=== PATIENT | female | born 1995 | race Caucasian/White ===

== ENCOUNTER 2017-07-23 14:14 | Emergency (ER) | payer MEDICAID, OTHER ==
[~2017-07-23] VITALS: Ht 162.6 cm; Wt 52.3 kg
[~2017-07-23 14:14] MED LIST: NOCURR
[2017-07-23] MEDS ORDERED: ACETAMINOPHEN 500 MG TABLET PO ONE (14:30)
[2017-07-23] MEDS ORDERED: AMOX TR/POT CLAV 875 MG/125 MG TABLET PO ONE (16:00)
[2017-07-23] MEDS ORDERED: CIPROFLOXACIN HCL 0.2%/HYDROCORT 1% 10 ML OTIC SUSPENSION AD ONE (16:00)
[2017-07-23] MEDS ORDERED: ONDANSETRON HCL 4 MG TABLET PO ONE (16:00)
[2017-07-23] MEDS ORDERED: NEOMYCIN/POLYMYXIN B/HYDROCORT 10 ML OTIC SUSPENSION AD ONE (16:00)
[2017-07-23 16:01] LABS: INFLUENZA TYPE A NEGATIVE FOR TYPE A (NEGATIVE); INFLUENZA TYPE B NEGATIVE FOR TYPE B (NEGATIVE)
[2017-07-23 17:06] VITALS: BP 109/68
== END 2017-07-23 17:07 | disposition home or self-care (01) ==
LOC: EMS 14:15
DX: H72.91 Unspecified perforation of tympanic membrane, right ear (principal); H60.91 Unspecified otitis externa, right ear; J06.9 Acute upper respiratory infection, unspecified; R11.2 Nausea with vomiting, unspecified
CPT/HCPCS: 87804; 99284; Q0162

== ENCOUNTER 2018-06-30 07:48 | Emergency (ER) | payer OTHER ==
[~2018-06-30] VITALS: Ht 165.1 cm; Wt 62.7 kg
[2018-06-30] MEDS ORDERED: HYDROCODONE/ACETAMINOPHEN 5-325 MG TABLET PO ONE (09:00)
[2018-06-30] MEDS ORDERED: KETOROLAC TROMETHAMINE 30 MG/ML VIAL IM ONE (09:00)
[2018-06-30 10:01] VITALS: BP 114/63
== END 2018-06-30 10:54 | disposition home or self-care (01) ==
LOC: EMS 07:49
DX: S13.4XXA Sprain of ligaments of cervical spine, initial encounter (principal); X50.9XXA Other and unspecified overexertion or strenuous movements or postures, initial encounter; Y93.89 Activity, other specified; Y92.89 Other specified places as the place of occurrence of the external cause; Y99.8 Other external cause status
CPT/HCPCS: 72040; 96372; 99283; J1885